=== PATIENT | female | born 2000 | race Caucasian/White ===

== ENCOUNTER 2022-05-18 18:50 | Emergency (ER) | payer OTHER ==
[2022-05-18] MEDS ORDERED: Ketorolac Tromethamine 30 MG/ML VIAL ONE (19:17)
[2022-05-18] MEDS ORDERED: Morphine 4 MG/ML VIAL ONE ×2 (19:17→19:35)
[2022-05-18] MEDS ORDERED: Ondansetron PF 4 MG/2 ML Vial ONE (19:34)
[2022-05-18 19:42] LABS: #Eosinphils 0.2 thou/uL (0.0-0.7); #Lymphocytes 3.5 thou/uL (1.20-3.40); #Monocytes 0.7 thou/uL (0.11-0.59); #Neutrophils 7.7 thou/uL (1.40-6.50); %Basophils 0.3 % (0.0-1.0); %Eosinophils 1.7 % (0.0-10.0); %Monocytes 5.5 % (0.0-4.0); %Neutrophils 63.5 % (31.0-61.0); Hemoglobin 13.2 g/dL (12.0-16.0); Mean Corpuscular HGB CONC 33.1 g/dL (32.0-36.0); Mean Corpuscular Hemoglobin 30.2 pg (25.0-35.0); Mean Platelet Volume 6.7 fL (7.4-10.4); Platelet Count 515 10x3/uL (130-400); RBC Distribution Width 12.6 % (11.5-14.5); Red Blood Cell (RBC) Count 4.36 mill/uL (4.00-5.20); White Blood Cell (WBC) Count 12.2 10x3/uL (4.8-10.8)
[2022-05-18 19:47] LABS: BHCG - Serum POSITIVE (NEGATIVE)
[2022-05-18 19:48] LABS: Pregs Control Background? CLEAR/WHITE (CLR/WHITE); Pregs Control Bar Appear? YES (CONTROL BAR)
[2022-05-18 20:03] LABS: ALT (SGPT) 58 U/L (8-55); AST (SGOT) 28 U/L (5-34); Albumin 4.4 g/dL (3.5-5.0); Alkaline Phosphatase 129 U/L (40-100); Anion Gap 14 mmol/L (10-20); BUN (Urea Nitrogen) 12 mg/dL (7.0-18.7); Bilirubin, Total 0.3 mg/dL (0.2-1.2); Calc. Creatinine Clearance 0 mL/min (70-130); Calcium 9.3 mg/dL (7.8-10.44); Carbon Dioxide 22 mmol/L (22-29); Chloride 106 mmol/L (98-107); Estimated GFR 123; Globulin 3.2 g/dL (2.4-3.5); Glucose 104 mg/dL (70-105); Lipase 37 U/L (8-78); Potassium 3.3 mmol/L (3.5-5.1); Protein, Total 7.6 g/dL (6.0-8.3); Sodium 139 mmol/L (136-145)
== END 2022-05-18 21:35 | disposition home or self-care (01) ==
LOC: ERS 18:50
DX: O99.611 Diseases of the digestive system complicating pregnancy, first trimester (principal); K80.20 Calculus of gallbladder without cholecystitis without obstruction; O99.281 Endocrine, nutritional and metabolic diseases complicating pregnancy, first trimester; E87.6 Hypokalemia; O26.611 Liver and biliary tract disorders in pregnancy, first trimester; K76.0 Fatty (change of) liver, not elsewhere classified
CPT/HCPCS: 36415; 76705; 80053; 83690; 84702; 84703; 85025; 93005; 96374; 96375; J1885; J2270; J2405

== ENCOUNTER 2022-05-19 05:45 | Inpatient (IN) | payer OTHER, SELFPAY ==
[2022-05-19] MEDS ORDERED: Morphine 4 MG/ML VIAL ONE ×3 (05:58→09:34)
[2022-05-19] MEDS ORDERED: Ondansetron PF 4 MG/2 ML Vial ONE ×2 (05:58→16:02)
[2022-05-19 06:36] LABS: #Eosinphils 0.1 thou/uL (0.0-0.7); #Lymphocytes 1.9 thou/uL (1.20-3.40); #Monocytes 0.7 thou/uL (0.11-0.59); #Neutrophils 10.4 thou/uL (1.40-6.50); %Eosinophils 0.8 % (0.0-10.0); %Lymphocytes 14.6 % (28.0-48.0); %Monocytes 5.2 % (0.0-4.0); %Neutrophils 79.4 % (31.0-61.0); Hemoglobin 13.6 g/dL (12.0-16.0); Mean Corpuscular HGB CONC 33.1 g/dL (32.0-36.0); Mean Corpuscular Hemoglobin 30.1 pg (25.0-35.0); Mean Platelet Volume 6.9 fL (7.4-10.4); Platelet Count 507 10x3/uL (130-400); RBC Distribution Width 12.6 % (11.5-14.5); White Blood Cell (WBC) Count 13.1 10x3/uL (4.8-10.8)
[2022-05-19 07:03] LABS: ALT (SGPT) 136 U/L (8-55); AST (SGOT) 120 U/L (5-34); Albumin 4.2 g/dL (3.5-5.0); Alkaline Phosphatase 143 U/L (40-100); Anion Gap 13 mmol/L (10-20); BUN (Urea Nitrogen) 10 mg/dL (7.0-18.7); Bilirubin, Total 1.3 mg/dL (0.2-1.2); Calc. Creatinine Clearance 0 mL/min (70-130); Calcium 9.3 mg/dL (7.8-10.44); Carbon Dioxide 25 mmol/L (22-29); Chloride 106 mmol/L (98-107); Estimated GFR 127; Globulin 3.1 g/dL (2.4-3.5); Glucose 90 mg/dL (70-105); Lipase 36 U/L (8-78); Potassium 3.6 mmol/L (3.5-5.1); Protein, Total 7.3 g/dL (6.0-8.3); Sodium 140 mmol/L (136-145)
[2022-05-19 10:39] LABS: SARS-CoV-2 NAA Rapid Test Not Detected (NotDetected)
[2022-05-19] MEDS ORDERED: Piperacillin/Tazobactam 3.375 GM VIAL ONE ×2 (11:43→16:29)
[2022-05-19] MEDS ORDERED: Midazolam HCl 2 mg/2 ml Vial ONE (15:21)
[2022-05-19] MEDS ORDERED: Bupivacaine/Epinephrine 0.25% 30 ML VIAL ONE (15:39)
[2022-05-19] MEDS ORDERED: Meperidine HCl/PF 25 MG/ML VIAL ONE (15:42)
[2022-05-19] MEDS ORDERED: Famotidine/PF 20 mg/2ml Vial ONE (15:43)
[2022-05-19] MEDS ORDERED: fentaNYL PF 100 MCG/2 ML SYRINGE ONE ×2 (15:43→17:18)
[2022-05-19] MEDS ORDERED: Phenylephrine 10 MG/ML VIAL ONE (16:02)
[2022-05-19] MEDS ORDERED: Glycopyrrolate 0.2 MG/ML 5 ML SYRINGE ONE (16:02)
[2022-05-19] MEDS ORDERED: Succinylcholine Chloride 100 MG/5 ML SYRINGE FS ONE (16:02)
[2022-05-19] MEDS ORDERED: Metoclopramide HCl 10 MG/2 ML VIAL ONE (16:02)
[2022-05-19] MEDS ORDERED: Lidocaine 1% PF 5 ML VIAL ONE (16:02)
[2022-05-19] MEDS ORDERED: NEOSTIGMINE 3 MG/3 ML SYR 3 MG/3 ML SYRINGE ONE (16:02)
[2022-05-19] MEDS ORDERED: PROPOFOL 200 MG/20 ML VIAL ONE (16:02)
[2022-05-19] MEDS ORDERED: Dexamethasone 20 MG/5 ML VIAL ONE (16:02)
[2022-05-19] MEDS ORDERED: Rocuronium Bromide 10 MG/ML (10ML VIAL) ONE (16:02)
[2022-05-19] MEDS ORDERED: Iopamidol 30 ML ONE (16:29)
[2022-05-19] MEDS ORDERED: Dextrose 50% Abboject 50 ML SYRINGE SLOW IVP PRN (17:59)
[2022-05-19] MEDS ORDERED: Promethazine HCl 25 MG/ML VIAL IM PRN ×2 (17:59→18:13)
[2022-05-19] MEDS ORDERED: Mag-Al 1200 mg/1200 mg/30 ML UDCUP PO PRN (17:59)
[2022-05-19] MEDS ORDERED: Dextrose 5% in Water 1,000 ML IV PRN (17:59)
[2022-05-19] MEDS ORDERED: hydrALAZINE 20 MG/ML VIAL SLOW IVP PRN (17:59)
[2022-05-19] MEDS ORDERED: Acetaminophen 325 MG TAB PO PRN (17:59)
[2022-05-19] MEDS ORDERED: Ipratropium/Albuterol 3 ML NEB NEB PRN (17:59)
[2022-05-19] MEDS ORDERED: Calcium Carbonate 500 MG ChewTAB PO PRN (17:59)
[2022-05-19] MEDS ORDERED: Meperidine HCl/PF 25 MG/ML VIAL SLOW IVP PRN (18:13)
[2022-05-19] MEDS ORDERED: Ketorolac Tromethamine 30 MG/ML VIAL IVP PRN (18:13)
[2022-05-19] MEDS ORDERED: Morphine Sulfate 2 MG/ML SYRINGE SLOW IVP PRN (18:13)
[2022-05-19] MEDS ORDERED: HYDROmorphone 2 MG/ML VIAL SLOW IVP PRN (18:13)
[2022-05-19] MEDS ORDERED: Ondansetron HCl/PF 4 MG/2 ML Vial IVP PRN (18:13)
[2022-05-19] MEDS ORDERED: FENTANYL 50 MCG/ML 1 ML VIAL ONE ×4 (18:18→19:14)
[2022-05-19 19:57] VITALS: BMI 33.3
[2022-05-19] MEDS: traMADol HCl 50 MG TAB PO PRN (20:29)
[2022-05-19] MEDS: Famotidine 20 MG TAB PO SCH (20:29)
[2022-05-19] MEDS: Docusate 100 MG CAP PO SCH (20:30)
[2022-05-19] MEDS: Morphine 2 MG/ML VIAL SLOW IVP PRN (20:30)
[2022-05-19] MEDS: Lactated Ringer's 1,000 ML IV SCH (20:30)
[2022-05-19] MEDS: Ondansetron PF 4 MG/2 ML Vial IVP PRN (20:55)
[2022-05-20] MEDS: Morphine 2 MG/ML VIAL SLOW IVP PRN ×3 (00:21→13:06)
[2022-05-20] MEDS: Lactated Ringer's 1,000 ML IV SCH ×3 (02:20→19:36)
[2022-05-20] MEDS: traMADol HCl 50 MG TAB PO PRN (03:15)
[2022-05-20 06:07] LABS: #Lymphocytes 1.5 thou/uL (1.20-3.40); #Monocytes 0.6 thou/uL (0.11-0.59); #Neutrophils 7.6 thou/uL (1.40-6.50); %Eosinophils 0.1 % (0.0-10.0); %Monocytes 5.9 % (0.0-4.0); Hemoglobin 12.2 g/dL (12.0-16.0); Mean Corpuscular Hemoglobin 30.4 pg (25.0-35.0); Platelet Count 472 10x3/uL (130-400); RBC Distribution Width 12.6 % (11.5-14.5); Red Blood Cell (RBC) Count 4.02 mill/uL (4.00-5.20); White Blood Cell (WBC) Count 9.6 10x3/uL (4.8-10.8)
[2022-05-20 06:42] LABS: ALT (SGPT) 405 U/L (8-55); AST (SGOT) 212 U/L (5-34); Albumin 3.9 g/dL (3.5-5.0); Alkaline Phosphatase 213 U/L (40-100); Anion Gap 14 mmol/L (10-20); BUN (Urea Nitrogen) 5 mg/dL (7.0-18.7); Bilirubin, Total 3.4 mg/dL (0.2-1.2); Calc. Creatinine Clearance 186 mL/min (70-130); Calcium 8.8 mg/dL (7.8-10.44); Carbon Dioxide 17 mmol/L (22-29); Chloride 110 mmol/L (98-107); Estimated GFR 133; Globulin 2.8 g/dL (2.4-3.5); Glucose 106 mg/dL (70-105); Protein, Total 6.7 g/dL (6.0-8.3); Sodium 137 mmol/L (136-145)
[2022-05-20] MEDS: Docusate 100 MG CAP PO SCH ×3 (09:00→20:29)
[2022-05-20] MEDS: Famotidine 20 MG TAB PO SCH ×2 (09:00→20:29)
[2022-05-20] MEDS ORDERED: FENTANYL 50 MCG/ML 1 ML VIAL ONE ×2 (09:25→10:15)
[2022-05-20] MEDS ORDERED: Indomethacin 50 MG SUPP PR SCH (09:30)
[2022-05-20] MEDS ORDERED: Indomethacin 50 MG SUPP ONE (10:10)
[2022-05-20] MEDS ORDERED: Iopamidol 30 ML ONE (10:12)
[2022-05-20] MEDS ORDERED: Levofloxacin 500 mg/D5W 100 ml Premix Bag ONE (10:19)
[2022-05-20] MEDS ORDERED: Ondansetron PF 4 MG/2 ML Vial ONE (10:25)
[2022-05-20] MEDS ORDERED: Ketorolac Tromethamine 30 MG/ML VIAL ONE (10:25)
[2022-05-20] MEDS ORDERED: Rocuronium Bromide 10 MG/ML (10ML VIAL) ONE (10:25)
[2022-05-20] MEDS ORDERED: PROPOFOL 200 MG/20 ML VIAL ONE (10:25)
[2022-05-20] MEDS ORDERED: Lidocaine 1% PF 5 ML VIAL ONE (10:25)
[2022-05-20] MEDS ORDERED: Dexamethasone 20 MG/5 ML VIAL ONE (10:25)
[2022-05-20] MEDS ORDERED: Promethazine HCl 25 MG/ML VIAL IM PRN (11:01)
[2022-05-20] MEDS ORDERED: Morphine Sulfate 2 MG/ML SYRINGE SLOW IVP PRN (11:01)
[2022-05-20] MEDS ORDERED: Ondansetron HCl/PF 4 MG/2 ML Vial IVP PRN (11:01)
[2022-05-20] MEDS ORDERED: PACU-Morphine 4MG/ML VIAL SLOW IVP PRN (11:01)
[2022-05-20] MEDS ORDERED: HYDROmorphone 2 MG/ML VIAL SLOW IVP PRN (11:01)
[2022-05-20] MEDS ORDERED: SUGAMMADEX SODIUM 200 MG/2 ML VIAL ONE (11:04)
[2022-05-20] MEDS ORDERED: Methocarbamol 500 MG TAB PO PRN (13:34)
[2022-05-20] MEDS: Ketorolac Tromethamine 30 MG/ML VIAL IVP PRN ×2 (13:56→20:29)
[2022-05-20] MEDS: Ondansetron PF 4 MG/2 ML Vial IVP PRN (13:58)
[2022-05-20] MEDS ORDERED: HYDROmorphone 0.5 MG/0.5 ML SYRINGE SLOW IVP PRN (15:14)
[2022-05-20] MEDS ORDERED: Lorazepam 2 MG/ML VIAL SLOW IVP PRN (17:34)
[2022-05-20] MEDS ORDERED: Cyclobenzaprine 10 MG TAB PO PRN (19:36)
[2022-05-20] MEDS ORDERED: Melatonin 3 MG TAB PO PRN (19:36)
[2022-05-20] MEDS: Morphine 4 MG/ML VIAL SLOW IVP PRN (23:17)
[2022-05-21] MEDS: Ketorolac Tromethamine 30 MG/ML VIAL IVP PRN (04:18)
[2022-05-21 05:15] VITALS: TEMP 98.3
[2022-05-21 05:50] LABS: #Eosinphils 0.1 thou/uL (0.0-0.7); #Lymphocytes 3.9 thou/uL (1.20-3.40); #Neutrophils 6.9 thou/uL (1.40-6.50); %Basophils 0.3 % (0.0-1.0); %Eosinophils 0.5 % (0.0-10.0); %Lymphocytes 32.3 % (28.0-48.0); %Monocytes 8.6 % (0.0-4.0); %Neutrophils 58.3 % (31.0-61.0); Mean Corpuscular Hemoglobin 29.8 pg (25.0-35.0); Mean Corpuscular Volume 93.2 fl (78.0-98.0); Mean Platelet Volume 6.9 fL (7.4-10.4); Platelet Count 463 10x3/uL (130-400); RBC Distribution Width 12.5 % (11.5-14.5); Red Blood Cell (RBC) Count 3.71 mill/uL (4.00-5.20); White Blood Cell (WBC) Count 11.9 10x3/uL (4.8-10.8)
[2022-05-21 06:17] LABS: ALT (SGPT) 300 U/L (8-55); AST (SGOT) 78 U/L (5-34); Albumin 3.6 g/dL (3.5-5.0); Alkaline Phosphatase 194 U/L (40-100); Bilirubin, Direct 0.6 mg/dL (0.1-0.3); Bilirubin, Total 1.2 mg/dL (0.2-1.2); Lipase 40 U/L (8-78)
[2022-05-21] MEDS: Docusate 100 MG CAP PO SCH (08:16)
[2022-05-21] MEDS: Famotidine 20 MG TAB PO SCH (08:16)
[2022-05-21] MEDS: Morphine 4 MG/ML VIAL SLOW IVP PRN (08:22)
[2022-05-21] MEDS: traMADol HCl 50 MG TAB PO PRN (11:01)
[2022-05-21] MEDS ORDERED: Ibuprofen 600 MG TAB PO PRN (11:49)
[2022-05-21 12:04] VITALS: BP 119/78
== END 2022-05-21 13:15 | disposition home or self-care (01) | DRG 419 ==
LOC: ERS 05:45 → SDC 12:17 → ERS 12:17 → SDC 12:33 → SURG A 17:59
PROVIDERS: ADMIT Surgery; ATTEND Surgery
PROC: 0FT44ZZ Resection of Gallbladder, Percutaneous Endoscopic Approach (ICD-10-PCS; principal; 2022-05-19)
PROC: BF10YZZ Fluoroscopy of Bile Ducts using Other Contrast (ICD-10-PCS; 2022-05-19)
PROC: 0FC98ZZ Extirpation of Matter from Common Bile Duct, Via Natural or Artificial Opening Endoscopic (ICD-10-PCS; 2022-05-20)
DX: K80.42 Calculus of bile duct with acute cholecystitis without obstruction (principal); Z20.822 Contact with and (suspected) exposure to COVID-19; F41.9 Anxiety disorder, unspecified; F32.A Depression, unspecified; F90.9 Attention-deficit hyperactivity disorder, unspecified type; Z79.899 Other long term (current) drug therapy; K80.20 Calculus of gallbladder without cholecystitis without obstruction; E87.6 Hypokalemia; K76.0 Fatty (change of) liver, not elsewhere classified
CPT/HCPCS: 36415; 47532; 74330; 76705; 80053; 80076; 83690; 84702; 84703; 85025; 88304; 93005; 96365; 96374; 96375; 96376; C1889; J1170; J1611; J1885; J1956; J2060; J2175; J2250; J2270; J2272; J2405; J2543; J3010; J7120; Q9967; S0028; U0002

== ENCOUNTER 2023-07-27 17:07 | Emergency (ER) | payer OTHER, SELFPAY ==
[2023-07-27] MEDS ORDERED: Ketorolac Tromethamine 30 MG (1 mL) VIAL ONE (18:06)
[2023-07-27] MEDS ORDERED: Promethazine HCl 25 MG in Sodium Chloride 0.9% 50 ML IVPB SCH (18:15)
[2023-07-27] MEDS ORDERED: Lidocaine 2% Viscous 10 mL, Alum & Magn 30 mL SSW SCH (18:15)
[2023-07-27 18:40] LABS: Bacteria/HPF None Seen HPF (None Seen); Bilirubin Negative (Negative); Blood, Urine Negative (Negative); CAUTI Indications for Culture Dysuria,urgency,freq; Clarity Clear (Clear); Glucose, Urine (Dipstick) Normal (Negative); Ketone, Urine Negative (Negative); Leukocyte Negative Leu/uL (Negative); Nitrite Negative (Negative); Protein, Urine (Dipstick) 10 mg/dL (Neg-Trace); Specific Gravity, Urine 1.032 (1.002-1.036); WBC/HPF 0-3 HPF (0-3)
[2023-07-27 18:42] LABS: Urine Culture Reflex No No
[2023-07-27 18:45] LABS: #Basophils Less than 0.03 10x3/uL (0.0-0.2); %Basophils 0.1 % (0.0-1.0); %Eosinophils 0.2 % (0.0-10.0); %Lymphocytes 9.8 % (21.0-51.0); %Neutrophils 85.7 % (42.0-75.0); Hematocrit 40.8 % (36.0-47.0); Hemoglobin 13.8 g/dL (12.0-16.0); Mean Corpuscular HGB CONC 33.8 g/dL (32.0-36.0); Mean Corpuscular Hemoglobin 30.1 pg (27.0-31.0); Mean Corpuscular Volume 89.1 fL (78.0-98.0); Mean Platelet Volume 8.8 fL (7.4-10.4); Platelet Count 495 10x3/uL (130-400); Red Blood Cell (RBC) Count 4.58 mill/uL (4.20-5.40)
[2023-07-27 18:54] LABS: BHCG - Serum Negative (NEGATIVE); Pregs Control Background? CLEAR/WHITE (CLR/WHITE); Pregs Control Bar Appear? YES (CONTROL BAR)
[2023-07-27 19:02] LABS: ALT (SGPT) 105 U/L (8-55); AST (SGOT) 43 U/L (5-34); Albumin 4.1 g/dL (3.5-5.0); Alkaline Phosphatase 89 U/L (40-110); Anion Gap 12 mmol/L (10-20); BUN (Urea Nitrogen) 7 mg/dL (7.0-18.7); Bilirubin, Total 0.7 mg/dL (0.2-1.2); Calc. Creatinine Clearance 0 mL/min (70-130); Calcium 9.3 mg/dL (7.8-10.44); Carbon Dioxide 23 mmol/L (22-29); Chloride 105 mmol/L (98-107); Estimated GFR 128; Globulin 3.9 g/dL (2.4-3.5); Glucose 94 mg/dL (70-105); Lipase 22 U/L (8-78); Potassium 3.4 mmol/L (3.5-5.1); Sodium 137 mmol/L (136-145)
[2023-07-27 19:06] LABS: Troponin I Less than 0.010 ng/mL (< 0.028)
[2023-07-27] MEDS ORDERED: Acetaminophen 500 MG TAB ONE (19:14)
== END 2023-07-27 20:20 | disposition home or self-care (01) ==
LOC: ERS 17:07
DX: R07.89 Other chest pain (principal); K29.70 Gastritis, unspecified, without bleeding; I10 Essential (primary) hypertension
CPT/HCPCS: 36415; 71045; 80053; 81001; 83605; 83690; 84484; 84703; 85025; 87040; 87086; 93005; 96361; 96374; 96375; J1885; J2550

== ENCOUNTER 2023-08-09 10:12 | Outpatient (CLI) | payer BC | END 2023-08-09 10:13 | disposition home or self-care (01) | LOC: BICRAD 10:12 | PROVIDERS: ATTEND Internal Medicine | DX: M25.532 Pain in left wrist (principal) ==

== ENCOUNTER 2023-09-09 15:43 | Emergency (ER) | payer BC ==
[2023-09-09] MEDS ORDERED: methylPREDNISolone Sod Succ/PF 125 MG/2 ML VIAL ONE (15:58)
[2023-09-09] MEDS ORDERED: diphenhydrAMINE 50 MG/ML VIAL ONE (15:58)
[2023-09-09] MEDS ORDERED: Famotidine/PF 20 mg/2ml Vial ONE (15:59)
[2023-09-09] MEDS ORDERED: Acetaminophen 500 MG TAB ONE (18:30)
== END 2023-09-09 19:35 | disposition home or self-care (01) ==
LOC: ERS 15:43
DX: O9A.211 Injury, poisoning and certain other consequences of external causes complicating pregnancy, first trimester (principal); T78.40XA Allergy, unspecified, initial encounter; Z55.6 Problems related to health literacy; Z3A.08 8 weeks gestation of pregnancy
CPT/HCPCS: 93005; 96374; 96375; J1200; J2930; S0028

== ENCOUNTER 2024-10-01 12:15 | Emergency (ER) | payer OTHER ==
[~2024-10-01 12:15] MED LIST: Iopamidol-370 76% 500 ML MDV (1 ML CHARGE) ONE
[2024-10-01 12:36] LABS: #Basophils 0.03 10x3/uL (0.0-0.2); #Eosinophils 0.13 10x3/uL (0.0-0.7); #Monocytes 0.46 10x3/uL (0.11-0.59); #Neutrophils 4.98 10x3/uL (1.40-6.50); %Basophils 0.3 % (0.0-1.0); %Eosinophils 1.5 % (0.0-10.0); %Lymphocytes 34.5 % (21.0-51.0); %Monocytes 5.4 % (0.0-10.0); %Neutrophils 58.0 % (42.0-75.0); Hematocrit 38.6 % (36.0-47.0); Hemoglobin 12.5 g/dL (12.0-16.0); Mean Corpuscular Hemoglobin 28.2 pg (27.0-31.0); Mean Corpuscular Volume 86.9 fL (78.0-98.0); Platelet Count 493 10x3/uL (130-400); Red Blood Cell (RBC) Count 4.44 mill/uL (4.20-5.40); White Blood Cell (WBC) Count 8.59 10x3/uL (4.8-10.8)
[2024-10-01 12:57] LABS: Pregnancy Test - Urine (BHCG) Negative (Negative); Pregu Control Background? CLEAR/WHITE (CLR/WHITE); Pregu Control Bar Appear? YES (CONTROL BAR)
[2024-10-01 12:59] LABS: CAUTI Indications for Culture Dysuria,urgency,freq; Glucose, Urine (Dipstick) Normal (Negative); Leukocyte 500 Leu/uL (Negative); Protein, Urine (Dipstick) Negative (Neg-Trace); RBC/HPF 0-3 HPF (0-3); Specific Gravity, Urine 1.028 (1.002-1.036); WBC/HPF 21-50 HPF (0-3)
[2024-10-01] MEDS ORDERED: Ondansetron PF 4 MG/2 ML Vial ONE (13:00)
[2024-10-01 13:06] LABS: Bacteria/HPF 1+ HPF (None Seen)
[2024-10-01 13:06] LABS: ALT (SGPT) 44 U/L (Less than 34); AST (SGOT) 32 U/L (11-34); Albumin 4.3 g/dL (3.1-4.5); Alkaline Phosphatase 109 U/L (40-110); Anion Gap 14 mmol/L (10-20); BUN (Urea Nitrogen) 10 mg/dL (7.0-18.7); Bilirubin, Total 0.4 mg/dL (0.3-1.2); Calc. Creatinine Clearance 0 mL/min (70-130); Calcium 9.3 mg/dL (7.8-10.44); Carbon Dioxide 21 mmol/L (22-29); Chloride 109 mmol/L (98-107); Globulin 3.9 g/dL (2.4-3.5); Glucose 82 mg/dL (70-105); Potassium 3.9 mmol/L (3.5-5.1); Sodium 140 mmol/L (136-145)
[2024-10-01 13:07] LABS: Urine Culture Reflex Yes Yes
== END 2024-10-01 14:32 | disposition home or self-care (01) ==
LOC: ERS 12:15
DX: N39.0 Urinary tract infection, site not specified (principal); Z55.6 Problems related to health literacy
CPT/HCPCS: 74177; 80053; 81001; 81025; 85025; 87086; 96374; J2270; J2405